=== PATIENT | female | born 1990 | race African-American/Black ===

== ENCOUNTER 2019-05-01 06:42 | Day surgery (SDC) | payer OTHER ==
[~2019-05-01] VITALS: Ht 157.5 cm; Wt 81.2 kg
[2019-05-01 07:15] LABS: HCG,QUAL RESULT NEGATIVE (NEGATIVE)
[2019-05-01] MEDS ORDERED: MIDAZOLAM HCL 5 MG/5 ML VIAL ONE (07:19)
[2019-05-01] MEDS ORDERED: SIMETHICONE 40 MG/0.6 ML ML ONE (07:20)
[2019-05-01 08:16] VITALS: BP_SYST 119
[2019-05-01] MEDS: MEPERIDINE HCL/PF 100 MG/ML AMP ONE ×3 (08:21→08:42)
[2019-05-01] MEDS: MIDAZOLAM HCL 5 MG/5 ML VIAL ONE ×4 (08:21→08:27)
== END 2019-05-01 11:00 | disposition home or self-care (01) ==
LOC: SDS 06:42
PROVIDERS: ATTEND Internal Medicine Gastroenterology
DX: R19.4 Change in bowel habit (principal); K64.8 Other hemorrhoids; K29.50 Unspecified chronic gastritis without bleeding; K31.7 Polyp of stomach and duodenum; M79.7 Fibromyalgia; Z79.899 Other long term (current) drug therapy; K21.9 Gastro-esophageal reflux disease without esophagitis
CPT/HCPCS: 36415; 43239; 45378; 84703; 87081; 88305; 88312; 88313; 99152; 99153; G0378; J2175; J2250

== ENCOUNTER 2021-10-30 12:22 | Outpatient (CLI) | payer OTHER ==
[2021-10-30 13:01] LABS: BASOPHILS % (AUTO) 0.5 % (0.0-2.0); EOSINOPHILS # (AUTO) 0.1 K/uL (0.0-0.4); EOSINOPHILS % (AUTO) 1.3 % (0.0-4.0); HEMATOCRIT 37.6 % (36-48); LYMPHOCYTES # (AUTO) 1.6 K/uL (1.0-5.5); MEAN CORPUSCULAR HEMOGLOBIN 30 pg (27-31); MEAN CORPUSCULAR HGB CONC 35 % (32-36); MEAN CORPUSCULAR VOLUME 87 fL (79.0-98.0); MONOCYTES # (AUTO) 0.3 K/uL (0.0-1.0); MONOCYTES % (AUTO) 5.2 % (1.7-9.3); NEUTROPHILS # (AUTO) 4.5 K/uL (1.8-7.7); PLATELET COUNT (AUTO) 245 K/uL (130-430); RED CELL DISTRIBUTION WIDTH 13.7 % (9.0-15.0); WHITE BLOOD COUNT (AUTO) 6.5 K/uL (4.8-10.8)
[2021-10-30 13:23] LABS: ALANINE AMINOTRANSFERASE 21 U/L (12-78); ALBUMIN 3.2 g/dL (3.4-4.8); ANION GAP 5 (5-15); ASPARTATE AMINOTRANSFERASE 13 U/L (10-37); CALCIUM 8.2 mg/dL (8.4-11.0); CHLORIDE 102 mmol/L (98-107); CREATININE 0.87 mg/dL (0.55-1.30); GFR AFRICAN AMERICAN 97 mL/min (>90); GLUCOSE 86 mg/dL (70-99); POTASSIUM 3.9 mmol/L (3.5-5.1); SODIUM SERUM 134 mmol/L (136-145); THYROID STIMULATING HORMONE 1.94 uIu/mL (0.36-3.74); TOTAL BILIRUBIN 0.1 mg/dL (0.0-1.0); UREA NITROGEN, BLOOD 14 mg/dL (8-21)
[2021-10-30 13:24] LABS: C-REACTIVE PROTEIN QUANT < 0.2 mg/dL (0-0.5)
[2021-10-30 13:44] LABS: ERYTHROCYTE SEDIMENTATION RATE 9 MM/HR (0-20)
[2021-10-31 08:07] LABS: ANTI NUCLEAR AB WITH REFLEX Negative (Negative); RA LATEX TURBID <10.0 IU/mL (<14.0)
== END 2021-10-30 20:15 | disposition home or self-care (01) ==
LOC: SLB 12:22
DX: E06.9 Thyroiditis, unspecified (principal); M45.9 Ankylosing spondylitis of unspecified sites in spine; M32.9 Systemic lupus erythematosus, unspecified; M06.9 Rheumatoid arthritis, unspecified; Z79.899 Other long term (current) drug therapy
CPT/HCPCS: 36415; 80053; 82306; 82607; 83735; 84443; 85025; 85651-TC; 86038; 86140; 86200; 86431